=== PATIENT | male | born 1985 | race Caucasian/White ===

== ENCOUNTER 2017-06-22 19:53 | Emergency (ER) | payer OTHER ==
[~2017-06-22] VITALS: Ht 180.3 cm; Wt 72.0 kg
[~2017-06-22 19:53] MED LIST: CARB200T16 PO
[2017-06-22 19:58] VITALS: BP 128/74; PULSE 79; RESP 18; TEMP 99; O2SAT 97
[2017-06-22] MEDS ORDERED: SODIUM CHLOR 0.9% 1000 ML INJ 1,000 ML IV ONE (20:01)
[2017-06-22] MEDS ORDERED: TEGR200T PO (20:05)
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
[2017-06-22] MEDS ORDERED: SODIUM CHLORIDE 0.9% FLUSH 10 ML FLUSH IVF PRN (20:15)
[2017-06-22 20:20] LABS: AUTOMATED NEUTROPHIL # 2.4 TH/MM3 (1.8-7.7); BASOPHIL % 0.6 % (0.0-2.0); EOSINOPHIL # 0.2 TH/MM3 (0-0.4); EOSINOPHIL % 3.4 % (0.0-4.0); HEMATOCRIT 42.1 % (39.0-51.0); HEMO FLAGS DIFF FINAL; LYMPH % 43.9 % (9.0-44.0); LYMPHOCYTE # 2.5 TH/MM3 (1.0-4.8); MEAN CELL VOLUME 98.8 FL (80.0-100.0); MEAN CORPUSCULAR HEMOGLOBIN 33.9 PG (27.0-34.0); MEAN CORPUSCULAR HGB CONC 34.3 % (32.0-36.0); NEUT % 42.1 % (16.0-70.0); PLATELET COUNT 199 TH/MM3 (150-450); RED BLOOD COUNT 4.26 MIL/MM3 (4.50-5.90); RED CELL DISTRIBUTION WIDTH 12.8 % (11.6-17.2); WHITE BLOOD COUNT 5.7 TH/MM3 (4.0-11.0)
[2017-06-22 20:43] LABS: ALKALINE PHOSPHATASE 82 U/L (45-117); ALT (GPT) 35 U/L (12-78); ANION GAP 8 MEQ/L (5-15); AST (GOT) 34 U/L (15-37); BICARBONATE 22.9 MEQ/L (21.0-32.0); BLOOD UREA NITROGEN 17 MG/DL (7-18); CHLORIDE 108 MEQ/L (98-107); GLOMERULAR FILTRATION RATE 67 ML/MIN (>89); POTASSIUM 3.7 MEQ/L (3.5-5.1); SODIUM (NA) 139 MEQ/L (136-145); TOTAL BILIRUBIN ADULT 0.3 MG/DL (0.2-1.0)
[2017-06-22] MEDS ORDERED: ACETAMINOPHEN/HYDROcodone 325 MG/5 MG TAB PO ONE (21:00)
[2017-06-22] MEDS ORDERED: carBAMazepine 200 MG TAB PO ONE (21:00)
== END 2017-06-22 21:26 | disposition home or self-care (01) ==
LOC: NEPE 19:53
DX: R56.9 Unspecified convulsions (principal); E11.9 Type 2 diabetes mellitus without complications; F17.200 Nicotine dependence, unspecified, uncomplicated; Z79.899 Other long term (current) drug therapy
CPT/HCPCS: 80053; 80156; 85025; 99283; J7030

== ENCOUNTER 2017-06-28 12:28 | Emergency (ER) | payer OTHER ==
[~2017-06-28] VITALS: Ht 180.3 cm; Wt 75.0 kg
[~2017-06-28 12:28] MED LIST changes: -CARB200T16 PO; +TEGR200T PO
[2017-06-28 12:50] VITALS: BP 114/68; PULSE 63; RESP 18; TEMP 98.3; O2SAT 98
[2017-06-28] MEDS ORDERED: carBAMazepine 200 MG TAB PO ONE (13:00)
[2017-06-28] MEDS ORDERED: TEGR200T PO (13:00)
--- NOTE | 2017-06-28 13:01 | PD ---
HPI Chief Complaint: Seizure Time Seen by Provider: 12:50 Travel History International Travel<30 days: No Contact w/Intl Traveler<30days: No Traveled to known affect area: No History of Present Illness HPI This is a 31-year-old male who has a history of seizure disorder who presents to the emergency department having had 2 seizures today. The second one was witnessed by his friend who helped him to the ground. He hasn't hit his head, didn't bite his tongue and didn't lose his bowels or bladder. He has no injuries associated with the seizures. He says it lasted for several minutes. The patient reports that he is out of his Tegretol. Usually takes 400 twice a day. He is having trouble getting into a primary care physician and doesn't have a neurologist. He is living in a fpc house. [facility] Past Medical History Diminished Hearing: No Immunizations Current: Yes Seizures: Yes Social History Alcohol Use: Yes (sober for last 3 months, currently in AA) Tobacco Use: Yes (1PP2D) Substance Use: No Allergies-Medications (Allergen,Severity, Reaction): Coded Allergies: No Known Allergies (Verified , 06/22/17) Reported Meds & Prescriptions Reported Meds & Active Scripts Active Reported Tegretol (Carbamazepine) 200 Mg Tab 400 Mg PO BID Review of Systems Except as stated in HPI: all other systems reviewed are Neg Physical Exam Narrative GENERAL:Well appearing, no acute distress SKIN: Focused skin assessment warm and dry. HEAD: Atraumatic. Normocephalic. EYES: Pupils equal and round. No injection or drainage. ENT: Moist mucous membranes NECK: Trachea midline. CARDIOVASCULAR: Regular rate and rhythm. No murmur appreciated. RESPIRATORY: Clear to auscultation. Breath sounds equal bilaterally. GASTROINTESTINAL: Abdomen soft, non-tender, nondistended. MUSCULOSKELETAL: No obvious deformities. NEUROLOGICAL: Awake and alert. No obvious cranial nerve deficits. Moving all extremities. PSYCHIATRIC: Appropriate mood and affect; insight and judgment normal. Data Data Last Documented VS Vital Signs Date Time Temp Pulse Resp B/P Pulse Ox O2 Delivery O2 Flow Rate FiO2 06/28/17 12:50 98.3 63 18 114/68 98 MDM Medical Decision Making Medical Screen Exam Complete: Yes Emergency Medical Condition: Yes Interpretation(s) Afebrile, no tachycardia, normotensive Differential Diagnosis Seizure, seizure disorder, closed head injury Narrative Course This is a 31-year-old male who presents to the emergency department with a seizure in the setting of medication noncompliance. He was just seen here in the emergency department several days ago having had a seizure and had blood work obtained at that time which was normal. He says he hasn't taken any Tegretol since then. I think it's reasonable to load him with Tegretol and provide him with a prescription. I don't think he requires any additional diagnostics or laboratory work. Diagnosis Primary Impression: Seizure Referrals: [facility] Patient Instructions: General Instructions Additional Instructions: If you develop severe worsening headache, persistent vomiting, numbness, weakness, difficulty walking or difficulty talking return to the emergency department immediately. Med/Other Pt SpecificInfo: Prescription(s) given Scripts Carbamazepine (Tegretol)200 Mg [id number] Mg PO BID 30 Days Ref 0 Prov:Lauren Monteiro MD 06/28/17 Disposition: 01 DISCHARGE HOME Condition: Stable Lauren Monteiro MD Jun 28, 2017 13:00
== END 2017-06-28 16:07 | disposition home or self-care (01) ==
LOC: NEPD 12:28
DX: G40.909 Epilepsy, unspecified, not intractable, without status epilepticus (principal); F17.200 Nicotine dependence, unspecified, uncomplicated
CPT/HCPCS: 99283

== ENCOUNTER 2017-07-22 15:01 | Emergency (ER) | payer OTHER ==
[~2017-07-22] VITALS: Ht 167.6 cm; Wt 70.0 kg
[2017-07-22 15:13] VITALS: BP 114/60; PULSE 82; RESP 20; TEMP 98.4; O2SAT 95
[2017-07-22 15:48] VITALS: BP 102/56; PULSE 74; RESP 16; O2SAT 99
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
[2017-07-22] MEDS ORDERED: SODIUM CHLORIDE 0.9% FLUSH 10 ML FLUSH IVF PRN (16:00)
[2017-07-22] MEDS ORDERED: carBAMazepine 200 MG TAB PO ONE (16:00)
[2017-07-22 16:24] LABS: AUTOMATED NEUTROPHIL # 3.9 TH/MM3 (1.8-7.7); BASOPHIL % 0.3 % (0.0-2.0); EOSINOPHIL # 0.1 TH/MM3 (0-0.4); EOSINOPHIL % 2.2 % (0.0-4.0); HEMATOCRIT 45.8 % (39.0-51.0); HEMO FLAGS DIFF FINAL; LYMPH % 25.1 % (9.0-44.0); LYMPHOCYTE # 1.5 TH/MM3 (1.0-4.8); MEAN CELL VOLUME 98.5 FL (80.0-100.0); MEAN CORPUSCULAR HEMOGLOBIN 32.6 PG (27.0-34.0); MEAN CORPUSCULAR HGB CONC 33.1 % (32.0-36.0); MONO % 8.8 % (0.0-8.0); NEUT % 63.6 % (16.0-70.0); PLATELET COUNT 182 TH/MM3 (150-450); RED BLOOD COUNT 4.65 MIL/MM3 (4.50-5.90); RED CELL DISTRIBUTION WIDTH 12.6 % (11.6-17.2); WHITE BLOOD COUNT 6.1 TH/MM3 (4.0-11.0)
[2017-07-22 16:32] VITALS: O2SAT 100
[2017-07-22 16:38] LABS: ALT (GPT) 31 U/L (12-78)
[2017-07-22 16:40] LABS: ALKALINE PHOSPHATASE 94 U/L (45-117); TOTAL BILIRUBIN ADULT 0.8 MG/DL (0.2-1.0)
[2017-07-22 16:43] LABS: ANION GAP 7 MEQ/L (5-15); AST (GOT) 44 U/L (15-37); BICARBONATE 24.6 MEQ/L (21.0-32.0); BLOOD UREA NITROGEN 15 MG/DL (7-18); CHLORIDE 105 MEQ/L (98-107); GLOMERULAR FILTRATION RATE 73 ML/MIN (>89); POTASSIUM 4.4 MEQ/L (3.5-5.1); SODIUM (NA) 137 MEQ/L (136-145)
[2017-07-22] MEDS ORDERED: TEGR200T PO (16:57)
[2017-07-22 17:01] LABS: BLOOD, URINE TRACE (NEG); GLUCOSE,URINE NEG (NEG); HYALINE CAST, URINE 1 /lpf (RARE); KETONE, URINE TRACE mg/dL (NEG); MUCUS URINE MOD /lpf (OCC); NITRITE,URINE NEG (NEG); PH, URINE 5.5 (5.0-8.5); SQUAMOUS EPITHELIAL CELL URINE <1 /hpf (0-5); URINE COLOR YELLOW (YELLW/STRAW)
[2017-07-22 17:56] VITALS: BP 138/75; PULSE 77; RESP 16; O2SAT 100
== END 2017-07-22 17:57 | disposition home or self-care (01) ==
LOC: NEPC 15:01
DX: G40.901 Epilepsy, unspecified, not intractable, with status epilepticus (principal); Z72.0 Tobacco use
CPT/HCPCS: 80053; 80156; 80307; 81001; 85025; 99283

== ENCOUNTER 2017-08-14 18:01 | Emergency (ER) | payer OTHER ==
[2017-08-14 18:09] VITALS: BP 135/83; PULSE 79; RESP 18; TEMP 98.6; O2SAT 99
[2017-08-14] MEDS ORDERED: SODIUM CHLOR 0.9% 1000 ML INJ 1,000 ML IV ONE (18:21)
--- NOTE | 2017-08-14 18:27 | PD ---
HPI Chief Complaint: Seizure Time Seen by Provider: 18:21 Travel History International Travel<30 days: No Contact w/Intl Traveler<30days: No Traveled to known affect area: No History of Present Illness HPI 31-year-old male presents to the emergency department for evaluation for seizure. The patient has history of seizures since he was 7 years old. He is currently on Tegretol. He states he has been taking as prescribed. Last seizure was approximately 3 weeks ago. He is not currently established with a neurologist. He states he went to take a nap and woke up with blood on the floor and a laceration on his head. He states that he believe he got back up to the couch in his postictal state. He states that he feels like he typically does after having a seizure. Patient states that he fell onto tile floor. He has a laceration to the forehead. He complains of headache, neck pain. The patient denies any chest pain or shortness of breath. No abdominal pain. No nausea, vomiting, diarrhea. Patient denies any lacerations to the tongue or incontinence. PFSH Past Medical History Diminished Hearing: No Immunizations Current: Yes Seizures: Yes Tetanus Vaccination: > 5 Years Social History Alcohol Use: No Tobacco Use: Yes Substance Use: No Allergies-Medications (Allergen,Severity, Reaction): Coded Allergies: No Known Allergies (Verified , 06/28/17) Reported Meds & Prescriptions Reported Meds & Active Scripts Active Tegretol (Carbamazepine) 200 Mg Tab 400 Mg PO BID 30 Days Review of Systems Except as stated in HPI: all other systems reviewed are Neg Physical Exam Narrative GENERAL: Well-nourished, well-developed male patient, afebrile. SKIN: Focused skin assessment warm/dry. Patient has a 2 cm linear laceration to the right forehead. HEAD: Normocephalic. ENT: Mucosa pink and moist. No erythema or exudates. No uvular edema. No uvular , palatal, or tonsillar deviation. Airway patent. Nasal turbinates appear normal without nasal blood, purulent drainage or septal hematoma. Bilateral tympanic membranes are clear without erythema or perforation. EYES: No scleral icterus. No injection or drainage. PERRLA. NECK: Supple, trachea midline. No JVD or lymphadenopathy. CARDIOVASCULAR: Regular rate and rhythm without murmurs, gallops, or rubs. RESPIRATORY: Breath sounds equal bilaterally. No accessory muscle use. Lungs sounds are clear to auscultation. GASTROINTESTINAL: Abdomen soft, non-tender, nondistended. MUSCULOSKELETAL: No cyanosis, or edema. BACK: No obvious deformity. No CVA tenderness. Patient has tenderness to palpation over midline cervical spine. Data Data Last Documented VS Vital Signs Date Time Temp Pulse Resp B/P (MAP) Pulse Ox O2 Delivery O2 Flow Rate FiO2 08/14/17 19:12 70 16 120/81 (94) 99 Room Air 08/14/17 18:41 2.00 08/14/17 18:09 98.6 Orders Orders Complete Blood Count With Diff (08/14/17 18:21) Electrocardiogram (08/14/17 ) Ct Brain W/O Iv Contrast(Rout) (08/14/17 ) Blood Glucose (08/14/17 18:21) Ecg Monitoring (08/14/17 18:21) Iv Access Insert/Monitor (08/14/17 18:21) Oximetry (08/14/17 18:21) Comprehensive Metabolic Panel (08/14/17 18:21) Sodium Chlor 0.9% 1000 Ml Inj (Ns 1000 M (08/14/17 18:21) Sodium Chloride 0.9% Flush (Ns Flush) (08/14/17 18:30) Magnesium (Mg) (08/14/17 18:21) Ct Cerv Spine W/O Contrast (08/14/17 ) Labs Laboratory Tests Test 08/14/17 18:34 White Blood Count 5.5 TH/MM3 Red Blood Count 4.46 MIL/MM3 Hemoglobin 15.0 GM/DL Hematocrit 43.7 % Mean Corpuscular Volume 98.2 FL Mean Corpuscular Hemoglobin 33.6 PG Mean Corpuscular Hemoglobin Concent 34.2 % Red Cell Distribution Width 12.7 % Platelet Count 170 TH/MM3 Mean Platelet Volume 8.9 FL Neutrophils (%) (Auto) 56.0 % Lymphocytes (%) (Auto) 31.5 % Monocytes (%) (Auto) 7.6 % Eosinophils (%) (Auto) 4.3 % Basophils (%) (Auto) 0.6 % Neutrophils # (Auto) 3.1 TH/MM3 Lymphocytes # (Auto) 1.7 TH/MM3 Monocytes # (Auto) 0.4 TH/MM3 Eosinophils # (Auto) 0.2 TH/MM3 Basophils # (Auto) 0.0 TH/MM3 CBC Comment DIFF FINAL Differential Comment Blood Urea Nitrogen 11 MG/DL Creatinine 1.03 MG/DL Random Glucose 101 MG/DL Total Protein 6.4 GM/DL Albumin 3.6 GM/DL Calcium Level 8.6 MG/DL Magnesium Level 2.0 MG/DL Alkaline Phosphatase 102 U/L Aspartate Amino Transf (AST/SGOT) 14 U/L Alanine Aminotransferase (ALT/SGPT) 20 U/L Total Bilirubin 0.4 MG/DL Sodium Level 140 MEQ/L Potassium Level 3.7 MEQ/L Chloride Level 107 MEQ/L Carbon Dioxide Level 27.4 MEQ/L Anion Gap 6 MEQ/L Estimat Glomerular Filtration Rate 83 ML/MIN MDM Medical Decision Making Medical Screen Exam Complete: Yes Emergency Medical Condition: Yes Medical Record Reviewed: Yes Interpretation(s) Last Impressions Head CT 08/14/17 0000 Signed Impressions: Service Date/Time: Monday, August 14, 2017 18:34 - CONCLUSION: No bleed or other acute intracranial abnormality. Maldonado Gallardo MD Cervical Spine CT 08/14/17 0000 Signed Impressions: Service Date/Time: Monday, August 14, 2017 18:37 - CONCLUSION: 1. No fracture or subluxation of the cervical spine. 2. Fairly advanced multilevel degenerative changes for a patient this age. There is associated multilevel spinal stenosis, especially C2/C3. Maldonado Gallardo MD Differential Diagnosis Breakthrough seizure versus electrolyte abnormality versus dehydration versus facial laceration Narrative Course 31-year-old male presents to the emergency department for evaluation after he had a seizure with a history of seizures. He does have laceration to the forehead. He complains of neck pain and headache. EKG shows sinus rhythm heart rate 73, no acute ST changes. CBC, CMP, magnesium are ordered and pending. CT of the brain and CT of the cervical spine are ordered and pending. Patient is given 1 L normal saline IV bolus. CBC shows no acute abnormality. CMP shows no acute abnormality. Magnesium is 2.0. CT of the brain shows no acute intracranial abnormality. CT of the cervical spine shows no fracture or subluxation of the cervical spine; fairly advanced multilevel degenerative changes for a patient this age. There is associated multilevel spinal stenosis, especially C2/C3. Lacerations are repaired with Dermabond. He is instructed on proper wound care. The patient states that he would like to go home. He states he is almost out of his Tegretol prescription. I will give him a refill of his prescription. I'll also give him the name and number were neurologist on-call. He is to return here for any acute worsening of symptoms. He verbalizes agreement and understanding. The patient was discharged in stable condition with instructions, including return instructions and follow up instructions. Procedures Procedure Narrative LACERATION LOCATION: Left forehead LENGTH: 0.5 cm NUMBER OF STITCHES/FRANCHESCA: Dermabond REPAIR: The area of the laceration was prepped with Betadine and sterilely draped. The wound was copiously irrigated and explored without evidence of foreign body, tendon injury or neurovascular injury. The wound was closed using Dermabond. This was a single layer repair. A sterile dressing was applied. The patient was advised to keep the dressing clean and dry. Patient tolerated the procedure well. LACERATION LOCATION: Left forehead LENGTH: 2 cm NUMBER OF STITCHES/FRANCHESCA: Dermabond REPAIR: The area of the laceration was prepped with Betadine and sterilely draped. The wound was copiously irrigated and explored without evidence of foreign body, tendon injury or neurovascular injury. The wound was closed using Dermabond. This was a single er repair. A sterile dressing was applied. The patient was advised to keep the dressing clean and dry. Patient tolerated the procedure well. Diagnosis Primary Impression: Breakthrough seizure Referrals: Kolby Cruz MD call for appointment Patient Instructions: Facial Laceration (ED), General Instructions, Generalized Tonic Clonic Seizures (ED) Additional Instructions: Do not apply creams or lotions the skin glue. Do not pick at skin glue. It will come off on its own. Keep skin glue dry. Follow up with neurologist. Dr. Cruz is her neurologist on-call today. Please call for an appointment. Return to the emergency department for any acute worsening of symptoms. Med/Other Pt SpecificInfo: Prescription(s) given Scripts Carbamazepine (Tegretol) 200 Mg Tab 400 MG PO BID for 30 Days, #60 TAB 0 Refills Prov: Yasmin Whitlock 08/14/17 Disposition: 01 DISCHARGE HOME Condition: Stable Yasmin Whitlock Aug 14, 2017 18:27
[2017-08-14] MEDS ORDERED: SODIUM CHLORIDE 0.9% FLUSH 10 ML FLUSH IVF PRN (18:30)
[2017-08-14 18:41] VITALS: O2SAT 97
--- NOTE | 2017-08-14 18:52 | RADRPT ---
EXAM DATE/TIME: 08/14/2017 18:34 [facility] COMPARISON: No previous studies available for comparison. INDICATIONS : Trauma, seizure today. Laceration on forehead. RADIATION DOSE: 56.35 CTDIvol (mGy) MEDICAL HISTORY : Seizures. SURGICAL HISTORY : None. ENCOUNTER: Initial ACUITY: 1 day PAIN SCALE: 2/10 LOCATION: cranial TECHNIQUE: Multiple contiguous axial images were obtained of the head. Using automated exposure control and adj ustment of the mA and/or kV according to patient size, radiation dose was kept as low as reasonably a chievable to obtain optimal diagnostic quality images. DICOM format image data is available electro nically for review and comparison. FINDINGS: CEREBRUM: The ventricles are normal for age. No evidence of midline shift, mass lesion, hemorrhage or acute in farction. No extra-axial fluid collections are seen. POSTERIOR FOSSA: The cerebellum and brainstem are intact. The 4th ventricle is midline. The cerebellopontine angle i s unremarkable. EXTRACRANIAL: The visualized portion of the orbits is intact. SKULL: The calvaria is intact. No evidence of skull fracture. CONCLUSION: No bleed or other acute intracranial abnormality. Maldonado Gallardo MD on August 14, 2017 at 18:50 Board Certified Radiologist. This report was verified electronically.
[2017-08-14 18:54] LABS: AUTOMATED NEUTROPHIL # 3.1 TH/MM3 (1.8-7.7); BASOPHIL % 0.6 % (0.0-2.0); EOSINOPHIL # 0.2 TH/MM3 (0-0.4); EOSINOPHIL % 4.3 % (0.0-4.0); HEMATOCRIT 43.7 % (39.0-51.0); HEMO FLAGS DIFF FINAL; LYMPH % 31.5 % (9.0-44.0); LYMPHOCYTE # 1.7 TH/MM3 (1.0-4.8); MEAN CELL VOLUME 98.2 FL (80.0-100.0); MEAN CORPUSCULAR HEMOGLOBIN 33.6 PG (27.0-34.0); MEAN CORPUSCULAR HGB CONC 34.2 % (32.0-36.0); MONO % 7.6 % (0.0-8.0); PLATELET COUNT 170 TH/MM3 (150-450); RED BLOOD COUNT 4.46 MIL/MM3 (4.50-5.90); RED CELL DISTRIBUTION WIDTH 12.7 % (11.6-17.2); WHITE BLOOD COUNT 5.5 TH/MM3 (4.0-11.0)
--- NOTE | 2017-08-14 18:56 | RADRPT ---
EXAM DATE/TIME: 08/14/2017 18:37 [facility] COMPARISON: No previous studies available for comparison. INDICATIONS : Trauma, seizure today. Laceration on forehead. RADIATION DOSE: 34.77 CTDIvol (mGy) MEDICAL HISTORY : Seizures. SURGICAL HISTORY : None. ENCOUNTER: Initial ACUITY: 1 day PAIN SCALE: 0/10 LOCATION: neck TECHNIQUE: Volumetric scanning of the cervical spine was performed. Multiplanar reconstructions in the sagittal, coronal and oblique axial planes were performed. Using automated exposure control and adjustment o f the mA and/or kV according to patient size, radiation dose was kept as low as reasonably achievable to obtain optimal diagnostic quality images. DICOM format image data is available electronically f or review and comparison. FINDINGS: No subluxations are demonstrated of the cervical spine. No cortical break or trabecular disruption. V ertebral body heights are within normal limits. Mild disc space narrowing with essentially circumferential osseous ridging seen at each level, C3/C4- C6/C7. 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 There is generally mild spinal stenos is at other levels. There is mild bilateral uncovertebral and facet osteoarthritis at essentially all levels. No paravertebral soft tissue swelling demonstrated. CONCLUSION: 1. No fracture or subluxation of the cervical spine. 2. Fairly advanced multilevel degenerative changes for a patient this age. There is associated multil evel spinal stenosis, especially C2/C3. Maldonado Gallardo MD on August 14, 2017 at 18:52 Board Certified Radiologist. This report was verified electronically.
[2017-08-14 19:03] LABS: ALT (GPT) 20 U/L (12-78); ANION GAP 6 MEQ/L (5-15); AST (GOT) 14 U/L (15-37); BICARBONATE 27.4 MEQ/L (21.0-32.0); BLOOD UREA NITROGEN 11 MG/DL (7-18); CHLORIDE 107 MEQ/L (98-107); GLOMERULAR FILTRATION RATE 83 ML/MIN (>89); POTASSIUM 3.7 MEQ/L (3.5-5.1); SODIUM (NA) 140 MEQ/L (136-145)
[2017-08-14 19:06] LABS: ALKALINE PHOSPHATASE 102 U/L (45-117); TOTAL BILIRUBIN ADULT 0.4 MG/DL (0.2-1.0)
[2017-08-14 19:12] VITALS: BP 120/81; PULSE 70; RESP 16; O2SAT 99
[2017-08-14] MEDS ORDERED: TEGR200T PO (19:46)
--- NOTE | 2017-08-14 21:45 | EKG ---
Date Performed: 08/14/2017 Time Performed: 18:09:01 PTAGE: 31 years EKG: Sinus rhythm NORMAL ECG NO PREVIOUS TRACING DOCTOR: Robert Shetty Interpretating Date/Time 08/14/2017 21:43:42
== END 2017-08-14 20:07 | disposition home or self-care (01) ==
LOC: NEPC 18:01
DX: G40.89 Other seizures (principal); S01.81XA Laceration without foreign body of other part of head, initial encounter; R51 Headache; M54.2 Cervicalgia; Z72.0 Tobacco use; Z86.69 Personal history of other diseases of the nervous system and sense organs; W08.XXXA Fall from other furniture, initial encounter
CPT/HCPCS: 12011; 70450; 72125; 80053; 83735; 85025; 93005; 96360; 99285; J7030

== ENCOUNTER 2017-08-20 14:07 | Inpatient (IN) | payer OTHER, MEDICARE ==
[~2017-08-20] VITALS: Ht 182.9 cm; Wt 69.4 kg
[2017-08-20 14:08] VITALS: BP 110/72; PULSE 68; RESP 20; TEMP 98; O2SAT 97
--- NOTE | 2017-08-20 14:27 | PD ---
Physical Exam Date Seen by Provider: Aug 20, 2017 Time Seen by Provider: 14:23 Narrative 31-year-old male presents to emergency Department with history of seizure disorder on Tegretol, with recent increased depression and suicidal ideation. Patient has history of suicidal attempts a couple of years ago. Patient also states history of hypoglycemia. Patient states he's having more seizures, last one documented August 14. Patient denies any other medical issues. Vital signs reviewed. Patient is awaiting mental health placement. Data Data Last Documented VS Vital Signs Date Time Temp Pulse Resp B/P (MAP) Pulse Ox O2 Delivery O2 Flow Rate FiO2 08/20/17 14:08 98.0 68 20 110/72 (85) 97 Room Air [facility] Medical Record Reviewed: Yes Supervised Visit with NILA: Yes Condition: Stable Keenan Boyd Aug 20, 2017 14:27
[2017-08-20 15:13] LABS: AUTOMATED NEUTROPHIL # 2.9 TH/MM3 (1.8-7.7); BASOPHIL % 0.7 % (0.0-2.0); EOSINOPHIL # 0.1 TH/MM3 (0-0.4); EOSINOPHIL % 2.1 % (0.0-4.0); HEMO FLAGS DIFF FINAL; LYMPH % 38.5 % (9.0-44.0); LYMPHOCYTE # 2.3 TH/MM3 (1.0-4.8); MEAN CELL VOLUME 98.5 FL (80.0-100.0); MEAN CORPUSCULAR HEMOGLOBIN 33.4 PG (27.0-34.0); MONO % 11.8 % (0.0-8.0); NEUT % 46.9 % (16.0-70.0); PLATELET COUNT 188 TH/MM3 (150-450); RED BLOOD COUNT 4.87 MIL/MM3 (4.50-5.90); RED CELL DISTRIBUTION WIDTH 12.8 % (11.6-17.2); WHITE BLOOD COUNT 6.1 TH/MM3 (4.0-11.0)
[2017-08-20 15:34] LABS: ALT (GPT) 25 U/L (12-78); ANION GAP 5 MEQ/L (5-15); AST (GOT) 27 U/L (15-37); BICARBONATE 29.6 MEQ/L (21.0-32.0); BLOOD UREA NITROGEN 16 MG/DL (7-18); CHLORIDE 104 MEQ/L (98-107); GLOMERULAR FILTRATION RATE 64 ML/MIN (>89); POTASSIUM 3.7 MEQ/L (3.5-5.1); SODIUM (NA) 139 MEQ/L (136-145)
[2017-08-20 15:37] LABS: ALKALINE PHOSPHATASE 117 U/L (45-117)
--- NOTE | 2017-08-20 17:03 | PD ---
HPI . Suicidal ideation Chief Complaint: Psychiatric Symptoms Time Seen by Provider: 16:54 Travel History International Travel<30 days: No Contact w/Intl Traveler<30days: No Traveled to known affect area: No History of Present Illness HPI This patient presents with a chief complaint of suicidal ideation. He was brought in by the police but is voluntary. He reports suicidal ideation. Last several years. He states that his symptoms have been made acutely worse because he has "thrown out of his house" and has lost his job because of seizures. He does not have a specific plan. [facility] Past Medical History Diminished Hearing: No Immunizations Current: Yes Seizures: Yes Past Surgical History Surgical History: No Previous Surgery Social History Alcohol Use: No Tobacco Use: Yes Substance Use: No Allergies-Medications (Allergen,Severity, Reaction): Coded Allergies: No Known Allergies (Verified , 08/20/17) Reported Meds & Prescriptions Reported Meds & Active Scripts Active Tegretol (Carbamazepine) 200 Mg Tab 400 Mg PO BID 30 Days Review of Systems Except as stated in HPI: all other systems reviewed are Neg Neurologic: Positive: Seizures Psychiatric: Positive: Depression, Suicidal Ideations Physical Exam Narrative GENERAL: Patient is lying on the stretcher watching TV in no distress. SKIN: warm/dry. HEAD: Normocephalic. Atraumatic. EYES: Pupils equal and round. No scleral icterus. No injection or drainage. ENT: No nasal bleeding or discharge. Mucous membranes pink and moist. NECK: Trachea midline. Full range of motion without pain.. CARDIOVASCULAR: Regular rate and rhythm. RESPIRATORY: No accessory muscle use. Clear to auscultation. Breath sounds equal bilaterally. MUSCULOSKELETAL: No obvious deformities. NEUROLOGICAL: Awake and alert. No obvious cranial nerve deficits. Motor grossly within normal limits. Normal speech. PSYCHIATRIC: Reported suicidal ideation. Data Data Last Documented VS Vital Signs Date Time Temp Pulse Resp B/P (MAP) Pulse Ox O2 Delivery O2 Flow Rate FiO2 08/20/17 14:08 98.0 68 20 110/72 (85) 97 Room Air Orders Orders Complete Blood Count With Diff (08/20/17 14:27) Comprehensive Metabolic Panel (08/20/17 14:27) Carbamazepine (Tegretol) (08/20/17 14:27) Psych Screen (08/20/17 14:27) Drug Screen, Random Urine (08/20/17 14:27) Labs Laboratory Tests Test 08/20/17 14:45 White Blood Count 6.1 TH/MM3 Red Blood Count 4.87 MIL/MM3 Hemoglobin 16.3 GM/DL Hematocrit 48.0 % Mean Corpuscular Volume 98.5 FL Mean Corpuscular Hemoglobin 33.4 PG Mean Corpuscular Hemoglobin Concent 34.0 % Red Cell Distribution Width 12.8 % Platelet Count 188 TH/MM3 Mean Platelet Volume 8.5 FL Neutrophils (%) (Auto) 46.9 % Lymphocytes (%) (Auto) 38.5 % Monocytes (%) (Auto) 11.8 % Eosinophils (%) (Auto) 2.1 % Basophils (%) (Auto) 0.7 % Neutrophils # (Auto) 2.9 TH/MM3 Lymphocytes # (Auto) 2.3 TH/MM3 Monocytes # (Auto) 0.7 TH/MM3 Eosinophils # (Auto) 0.1 TH/MM3 Basophils # (Auto) 0.0 TH/MM3 CBC Comment DIFF FINAL Differential Comment Blood Urea Nitrogen 16 MG/DL Creatinine 1.30 MG/DL Random Glucose 82 MG/DL Total Protein 8.2 GM/DL Albumin 4.4 GM/DL Calcium Level 9.0 MG/DL Alkaline Phosphatase 117 U/L Aspartate Amino Transf (AST/SGOT) 27 U/L Alanine Aminotransferase (ALT/SGPT) 25 U/L Total Bilirubin 1.0 MG/DL Sodium Level 139 MEQ/L Potassium Level 3.7 MEQ/L Chloride Level 104 MEQ/L Carbon Dioxide Level 29.6 MEQ/L Anion Gap 5 MEQ/L Estimat Glomerular Filtration Rate 64 ML/MIN Carbamazepine (Tegretol) Level 1.5 MCG/ML MDM Medical Decision Making Medical Screen Exam Complete: Yes Emergency Medical Condition: Yes Medical Record Reviewed: Yes (this patient has been seen here several times in the recent past for seizures. On review of his previous labs, his Tegretol level is often subtherapeutic. He has had recent labs which were unremarkable.) Differential Diagnosis Differential diagnosis includes but is not limited to depression with suicidal gesture, suicide attempt, suicidal ideation, attention seeking behavior. Narrative Course This patient presents stating that he is suicidal. He is medically clear. He has had recent labs. I have ordered a Tegretol level. However, he is medically clear for psychiatric evaluation. Diagnosis Primary Impression: Suicidal ideation Condition: Stable Samantha Chinchilla MD Aug 20, 2017 17:03
[2017-08-20 21:51] VITALS: BP 110/52; PULSE 74; RESP 20; O2SAT 100
[2017-08-20] MEDS ORDERED: LORazepam 2 MG/ML VIAL IV PUSH ONE (22:00)
[2017-08-20] MEDS: carBAMazepine 200 MG TAB PO SCH (22:26)
[2017-08-21] VITALS (7 sets, daily range): BP systolic 88–120; BP diastolic 56–69; PULSE 52–82; RESP 16–22; TEMP 97.7; O2SAT 97–99
--- NOTE | 2017-08-21 05:33 | PD ---
Data Data Last Documented VS Vital Signs Date Time Temp Pulse Resp B/P (MAP) Pulse Ox O2 Delivery O2 Flow Rate FiO2 08/21/17 01:15 78 16 91/65 (74) 99 Room Air 08/20/17 14:08 98.0 Orders Orders Complete Blood Count With Diff (08/20/17 14:27) Comprehensive Metabolic Panel (08/20/17 14:27) Carbamazepine (Tegretol) (08/20/17 14:27) Psych Screen (08/20/17 14:27) Drug Screen, Random Urine (08/20/17 14:27) Carbamazepine (Tegretol) (08/20/17 21:00) Lorazepam Inj (Ativan Inj) (08/20/17 22:00) Labs Laboratory Tests Test 08/20/17 14:45 White Blood Count 6.1 TH/MM3 Red Blood Count 4.87 MIL/MM3 Hemoglobin 16.3 GM/DL Hematocrit 48.0 % Mean Corpuscular Volume 98.5 FL Mean Corpuscular Hemoglobin 33.4 PG Mean Corpuscular Hemoglobin Concent 34.0 % Red Cell Distribution Width 12.8 % Platelet Count 188 TH/MM3 Mean Platelet Volume 8.5 FL Neutrophils (%) (Auto) 46.9 % Lymphocytes (%) (Auto) 38.5 % Monocytes (%) (Auto) 11.8 % Eosinophils (%) (Auto) 2.1 % Basophils (%) (Auto) 0.7 % Neutrophils # (Auto) 2.9 TH/MM3 Lymphocytes # (Auto) 2.3 TH/MM3 Monocytes # (Auto) 0.7 TH/MM3 Eosinophils # (Auto) 0.1 TH/MM3 Basophils # (Auto) 0.0 TH/MM3 CBC Comment DIFF FINAL Differential Comment Blood Urea Nitrogen 16 MG/DL Creatinine 1.30 MG/DL Random Glucose 82 MG/DL Total Protein 8.2 GM/DL Albumin 4.4 GM/DL Calcium Level 9.0 MG/DL Alkaline Phosphatase 117 U/L Aspartate Amino Transf (AST/SGOT) 27 U/L Alanine Aminotransferase (ALT/SGPT) 25 U/L Total Bilirubin 1.0 MG/DL Sodium Level 139 MEQ/L Potassium Level 3.7 MEQ/L Chloride Level 104 MEQ/L Carbon Dioxide Level 29.6 MEQ/L Anion Gap 5 MEQ/L Estimat Glomerular Filtration Rate 64 ML/MIN Carbamazepine (Tegretol) Level 1.5 MCG/ML MDM Supervised Visit with NILA: No Narrative Course Patient had a short witnessed seizure and cycling pot. He was brought to the [facility] pod around 10 PM or so. Seizure activity was brief. He had some postictal activity afterwards. She was small dose of Ativan. He has his home seizure medications ordered which he apparently had not been taking. He remains medically clear for psychiatry. Diagnosis Primary Impression: Suicidal ideation Condition: Stable Sohail Balbuena MD Aug 21, 2017 05:33
[2017-08-21] MEDS: carBAMazepine 200 MG TAB PO SCH ×2 (11:13→21:00)
--- NOTE | 2017-08-21 14:37 | PD ---
History of Present Illness Chief Complaint: Psychiatric Symptoms Time Seen by Provider: 13:00 Travel History International Travel<30 Days: No Contact w/Intl Traveler<30days: No Known affected area: No Legal Status Legal Status: Voluntary History of Present Illness: 31-year-old male presents voluntarily with reports of depression and suicidal ideation. Patient has a history of a seizure disorder and reports for this reason he has lost his job. He describes suicidal ideation and is unable or unwilling to contract for safety. Although his mother lives in [place] , the patient cannot let go there because his stepfather will not allow it. Symptoms of depressed mood, anhedonia, social withdrawal, suicidal ideation with plan, tearfulness, hopelessness and helplessness, sleep disturbance and appetite disturbance and anxiety. PFSH Past Medical History Diminished Hearing: No Immunizations Current: Yes Seizures: Yes Past Surgical History Surgical History: No Previous Surgery Psychiatric History Psychiatric History Hx Psychiatric Treatment: Denied History of Inpatient Treatment: No Guns or firearms in home: No Social History Hx Alcohol Use: No Hx Tobacco Use: Yes Hx Substance Use: No Hx of Substance Use Treatment: No Allergies-Medications (Allergen,Severity, Reaction): Coded Allergies: No Known Allergies (Verified , 08/21/17) Reported Meds & Prescriptions Reported Meds & Active Scripts Active Tegretol (Carbamazepine) 200 Mg Tab 400 Mg PO BID 30 Days Review of Systems Except as stated in HPI: all other systems reviewed are Neg Exam Alert: Yes [place]: Person, Place, Date, Situation Mood: Depressed Affect: Appropriate Speech: Clear, Logical Eye Contact: Normal Memory Intact: Immediate, Recent, Remote Suicidal: Plan, Ideation Insight/Judgement Impaired MDM Medical Decision Making Medical Record Reviewed: Yes Assessment/Plan Patient interviewed at bedside. Medical record reviewed. Case discussed with nurse. Patient felt to be at high risk for suicidal behavior. Plan is to admit him for further evaluation and treatment. Orders Orders Carbamazepine (Tegretol) (08/20/17 21:00) Lorazepam Inj (Ativan Inj) (08/20/17 22:00) Diet Regular Basic (08/21/17 Breakfast) Results Vital Signs Date Time Temp Pulse Resp B/P (MAP) Pulse Ox O2 Delivery O2 Flow Rate FiO2 08/21/17 07:53 70 22 107/64 (78) 99 Room Air 08/21/17 05:15 82 16 88/56 (67) 99 Room Air 08/21/17 01:15 78 16 91/65 (74) 99 Room Air 08/20/17 21:51 74 20 110/52 (71) 100 Room Air Laboratory Tests Test 08/20/17 14:45 08/21/17 13:30 White Blood Count 6.1 Red Blood Count 4.87 Hemoglobin 16.3 Hematocrit 48.0 Mean Corpuscular Volume 98.5 Mean Corpuscular Hemoglobin 33.4 Mean Corpuscular Hemoglobin Concent 34.0 Red Cell Distribution Width 12.8 Platelet Count 188 Mean Platelet Volume 8.5 Neutrophils (%) (Auto) 46.9 Lymphocytes (%) (Auto) 38.5 Monocytes (%) (Auto) 11.8 Eosinophils (%) (Auto) 2.1 Basophils (%) (Auto) 0.7 Neutrophils # (Auto) 2.9 Lymphocytes # (Auto) 2.3 Monocytes # (Auto) 0.7 Eosinophils # (Auto) 0.1 Basophils # (Auto) 0.0 CBC Comment DIFF FINAL Differential Comment Blood Urea Nitrogen 16 Creatinine 1.30 Random Glucose 82 Total Protein 8.2 Albumin 4.4 Calcium Level 9.0 Alkaline Phosphatase 117 Aspartate Amino Transf (AST/SGOT) 27 Alanine Aminotransferase (ALT/SGPT) 25 Total Bilirubin 1.0 Sodium Level 139 Potassium Level 3.7 Chloride Level 104 Carbon Dioxide Level 29.6 Anion Gap 5 Estimat Glomerular Filtration Rate 64 Carbamazepine (Tegretol) Level 1.5 Urine Opiates Screen NEG Urine Barbiturates Screen NEG Urine Amphetamines Screen NEG Urine Benzodiazepines Screen NEG Urine Cocaine Screen POS Urine Cannabinoids Screen POS Diagnosis Primary Impression: Adjustment disorder with depressed mood Prescriptions Mirtazapine (Mirtazapine) 15 Mg Tab 15 MG PO HS for Mental Health for 15 Days, TAB 1 Refill Prov: Kolby Leong MD 08/25/17 Levetiracetam (Keppra) 500 Mg Tab 500 MG PO Q12HR for Seizure for 15 Days, TAB 1 Refill Prov: Kolby Leong MD 08/25/17 Condition: Stable Angel Riddle MD Aug 21, 2017 14:37
[2017-08-22 06:04] VITALS: BP 107/65; PULSE 54; RESP 18
[2017-08-22] MEDS: carBAMazepine 200 MG TAB PO SCH ×2 (09:45→21:00)
[2017-08-22 11:15] VITALS: BP 108/56; PULSE 60; RESP 18; O2SAT 100
[2017-08-22 17:48] VITALS: BP 108/56; PULSE 60; RESP 18; O2SAT 100
[2017-08-22 18:15] VITALS: BP 110/65; PULSE 62; TEMP 98.4
[2017-08-22] MEDS ORDERED: MAGNESIUM HYDROXIDE SUSP 30 ML CUP PO PRN (18:30)
[2017-08-22] MEDS ORDERED: ACETAMINOPHEN 325 MG TAB PO PRN (18:30)
[2017-08-22] MEDS ORDERED: LORazepam 2 MG/ML VIAL IM PRN (18:30)
[2017-08-22] MEDS ORDERED: ALUMINUM/MAGNESIUM/SIMETH 30 ML CUP PO PRN (18:30)
[2017-08-22] MEDS ORDERED: LORazepam 1 MG TAB PO PRN (18:30)
[2017-08-22] MEDS: REMOVE OLD NICOTINE PATCH T-DERMAL SCH (21:00)
[2017-08-23 06:16] VITALS: BP 119/74; PULSE 67; TEMP 97.1; O2SAT 99
[2017-08-23 08:47] LABS: ANION GAP 6 MEQ/L (5-15); BICARBONATE 31.4 MEQ/L (21.0-32.0); BLOOD UREA NITROGEN 17 MG/DL (7-18); CHLORIDE 106 MEQ/L (98-107); GLOMERULAR FILTRATION RATE 67 ML/MIN (>89); POTASSIUM 3.8 MEQ/L (3.5-5.1); SODIUM (NA) 143 MEQ/L (136-145)
[2017-08-23 08:50] LABS: HDL CHOLESTEROL 40.3 MG/DL (40.0-60.0); LDL CHOLESTEROL 96 MG/DL (0-99)
[2017-08-23] MEDS: NICOTINE 21 MG/24 HR PATCH T-DERMAL SCH (09:58)
[2017-08-23] MEDS: carBAMazepine 200 MG TAB PO SCH (11:00)
[2017-08-23 11:19] LABS: HEMOGLOBIN A1b 0.8 %; HEMOGLOBIN Ao 87.1 %; HEMOGLOBIN F 0.8 %; HEMOGLOBIN LA1C 1.8 %; HEMOGLOBIN P3 3.3 %
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
--- NOTE | 2017-08-23 12:57 | EKG ---
Date Performed: 08/23/2017 Time Performed: 10:21:39 PTAGE: 31 years EKG: Normal Sinus rhythm Normal ECG PREVIOUS TRACING : 08/14/2017 18.09 Compared to prior tracing no significant change DOCTOR: Michael Joyner Interpretating Date/Time 08/23/2017 12:56:22
--- NOTE | 2017-08-23 13:39 | PD.CONS ---
HPI Service [facility] Hospitalists Consult Requested By Psychiatric services Reason for Consult Medical management, seizure management Primary Care Physician No Primary Care Physician Diagnoses: History of Present Illness Written by Madina Perez PA-C acting as scribe for Dr. Bradshaw on 08/23/17 at 13:29. This note was transcribed by scribe Madina Perez PA-C. I, Dr. Raj Bradshaw personally performed the history, physical exam, and medical decision making; and confirmed the accuracy of the information in the transcribed note. Authenticated by Dr. Raj Bradshaw on 08/23/17 at 20:16. This is a 31-year-old male with past medical history significant for seizure disorder starting at the age of 7, depression and history of hypoglycemia per patient report who was brought in to [facility] ED by the police voluntarily for suicidal ideation and has since been admitted to the psychiatric unit. Hospitalist services have been consulted for medical management specifically for seizure management. Patient states he has been compliant with his Tegretol medication taking it as prescribed although his levels were low at 1.5 at admission which would imply noncompliance. Patient states he has recurrent seizure activity. Patient states he recently lost his job due to seizures. Per ED note at time of admission, patient had a witnessed seizure. He does not follow up with neurologist as an outpatient. Patient endorses a history of low blood sugar that he states triggers his seizures. He admits that he sometimes skips meals. He does not know how low his blood sugars may go. Patient denies any other complaints at this time. Review of Systems Except as stated in HPI: all other systems reviewed are Neg Past Family Social History Allergies: Coded Allergies: No Known Allergies (Verified , 08/21/17) Past Medical History Long-standing seizure disorder since age 7 Depression Suicidal ideation Hypoglycemia per patient report Past Surgical History Patient denies any previous surgical procedures Reported Medications Tegretol (Carbamazepine) 200 Mg Tab 400 Mg PO BID Active Ordered Medications Current Medications Medications (Trade) Dose Ordered Sig/Shane Route Start Time Stop Time Status Last Admin (TEGretol) 400 mg Q12HR PO 08/20/17 21:00 08/23/17 11:00 (Ativan) 1 mg Q6H PRN PO 08/22/17 18:30 08/22/17 22:20 (Ativan Inj) 1 mg Q6H PRN IM 08/22/17 18:30 (Tylenol) 650 mg Q4H PRN PO 08/22/17 18:30 (Milk Of Magnesia Liq) 30 ml DAILY PRN PO 08/22/17 18:30 (Mag-Al Plus Susp Liq) 30 ml Q6H PRN PO 08/22/17 18:30 (Habitrol 21 Mg Patch.24 Hr) 1 patch DAILY T-DERMAL 08/23/17 09:00 08/23/17 09:58 Miscellaneous Information 1 HS T-DERMAL 08/22/17 21:00 (Remeron) 15 mg HS PO 08/23/17 21:00 Family History Patient states both parents are healthy and denies any significant family medical history. Social History Patient reports tobacco use 1 pack per day. He denies any alcohol use. Patient denies any illicit drug use however his admission drug screen was positive for cocaine and cannabis. Physical Exam Vital Signs Vital Signs Date Time Temp Pulse Resp B/P (MAP) Pulse Ox O2 Delivery O2 Flow Rate FiO2 08/23/17 06:16 97.1 67 119/74 (89) 99 08/22/17 18:15 98.4 62 110/65 (80) 08/22/17 17:49 08/22/17 17:48 60 18 108/56 (73) 100 Room Air Physical Exam GENERAL: This is a well-nourished, well-developed patient, in no apparent distress. Awake and alert. Appears comfortable. SKIN: No rashes, ecchymoses or lesions. Cool and dry. HEAD: Atraumatic. Normocephalic. No temporal or scalp tenderness. EYES: Pupils equal round and reactive. Extraocular motions intact. No scleral icterus. No injection or drainage. ENT: Nose without bleeding, purulent drainage. Throat without erythema, tonsillar hypertrophy or exudate. Uvula midline. Airway patent. NECK: Trachea midline. No lymphadenopathy. Supple, nontender, no meningeal signs. CARDIOVASCULAR: Regular rate and rhythm without murmurs, gallops, or rubs. RESPIRATORY: Clear to auscultation. Breath sounds equal bilaterally. No wheezes , rales, or rhonchi. GASTROINTESTINAL: Abdomen soft, non-tender, nondistended. No hepato-splenomegaly , or palpable masses. No guarding. MUSCULOSKELETAL: Extremities without clubbing, cyanosis, or edema. No joint tenderness, effusion, or edema noted. No calf tenderness. NEUROLOGICAL: Awake and alert. Able to move all extremities. No focal neurologic findings. Normal speech. Laboratory Laboratory Tests Test 08/23/17 06:19 Blood Urea Nitrogen 17 Creatinine 1.25 Random Glucose 74 Calcium Level 8.5 Sodium Level 143 Potassium Level 3.8 Chloride Level 106 Carbon Dioxide Level 31.4 Anion Gap 6 Estimat Glomerular Filtration Rate 67 Hemoglobin A1c 4.9 Triglycerides Level 63 Cholesterol Level 149 LDL Cholesterol 96 HDL Cholesterol 40.3 Cholesterol/HDL Ratio 3.69 Result Diagram: 08/20/17 1445 08/23/17 0619 Assessment and Plan Assessment and Plan 31-year-old male with past medical history significant for seizure disorder starting at the age of 7, depression and history of hypoglycemia per patient report who was brought in to [facility] ED by the police voluntarily for suicidal ideation and has since been admitted to the psychiatric unit. Hospitalist services have been consulted for medical management specifically for seizure management. Depression Suicidal ideation - Management per psychiatric team Seizure disorder - Patient states that despite medication compliance that he has continued to have recurrent seizure activity - Discussed with patient at length changing his medication from Tegretol to Keppra 500mg BID - Patient understands that he will need to be seen by neurologist as an outpatient for follow-up Hypoglycemia, per patient report - Patient states that low blood sugars trigger seizure activity - Accu-Cheks 3 times a day before meals - Discussed with patient increasing his oral intake to include more small meals throughout the day and attempt not to skip any meals - Will obtain AM cortisol at 8am Tobaccoism - Discussed smoking cessation DVT prophylaxis - Patient is ambulatory Thank you very kindly for this consultation. Will continue to follow this patient along with you. Discussed Condition With Patient Madina Perez Aug 23, 2017 13:39 Sudha Bradshaw DO Aug 23, 2017 20:19
[2017-08-23] MEDS ORDERED: DEXTROSE 50% IN WATER 50 ML VIAL(D50) IV PUSH PRN (16:30)
[2017-08-23] MEDS ORDERED: GLUCAGON 1 MG/ML VIAL IM PRN (16:30)
[2017-08-23 17:12] VITALS: BP 119/80; PULSE 71; RESP 18; TEMP 98.4; O2SAT 99
[2017-08-23] MEDS ORDERED: hydrOXYzine HCL 50 MG TAB PO PRN (17:15)
[2017-08-23] MEDS: REMOVE OLD NICOTINE PATCH T-DERMAL SCH (21:00)
[2017-08-23] MEDS: levETIRAcetam 500 MG TAB PO SCH (21:43)
[2017-08-23] MEDS: MIRTAZAPINE 15 MG TAB PO SCH (21:43)
[2017-08-24 06:21] VITALS: BP 91/52; PULSE 57; RESP 18; TEMP 97.4; O2SAT 98
[2017-08-24] MEDS: NICOTINE 21 MG/24 HR PATCH T-DERMAL SCH (09:21)
[2017-08-24] MEDS: levETIRAcetam 500 MG TAB PO SCH ×2 (09:21→20:43)
--- NOTE | 2017-08-24 09:42 | HHI.PYPN ---
Subjective Remarks Patient seen and examined with counselor. Chart reviewed. Case discussed with nursing staff. No behavioral issues overnight. On my examination today, the patient says that his mood is improving. He denies any suicidal or homicidal ideation. Denies significant anxiety. Denies audiovisual hallucinations. Denies side effects from medications besides some mild grogginess. No physical complaints. Review of Systems Except as stated in HPI: all other systems reviewed are Neg Objective Alert: Yes [place]: Person, Place, Date, Situation Mood: Other (mood improving) Affect: Appropriate Memory Intact: Comment (intact on clinical exam) Hallucinations: Other (denies AVH) Delusions: No Delusion Type: Other (no delusions) Suicidal: Ideation (denies SI) Homicidal: Ideation (denies HI) Insight/Judgment Fair Remarks No motor abnormality noted. No ictal activity. Thought process linear. Grooming and hygiene fair. Labs Labs reviewed. Cortisol level ordered by the hospitalist pending. Vitals/IOs Vital Signs Date Time Temp Pulse Resp B/P (MAP) Pulse Ox O2 Delivery O2 Flow Rate FiO2 08/24/17 06:21 97.4 57 18 91/52 (65) 98 08/22/17 17:48 Room Air Assessment & Plan Problem List: (1) Adjustment disorder ICD Codes: F43.20 - Adjustment disorder, unspecified Assessment & Plan Continue Remeron as ordered. I note that the hospitalist has switched the patient from Tegretol to Keppra, and I discuss with patient that this agent can sometimes cause dysphoric reactions, and he should remain vigilant for this. Continue to monitor on the inpatient unit. Continue other medications and care as ordered. Justification for Cont. Inpt. Monitoring for impairments in safety, none noted. Discharge Planning Anticipate discharge tomorrow, . Request HC Surrog/Guard Advoc?: No Problem Qualifiers (1) Adjustment disorder: Qualified Codes: F43.21 - Adjustment disorder with depressed mood Kolby Leong MD Aug 24, 2017 09:42
--- NOTE | 2017-08-24 16:40 | HHI.PR ---
Subjective Remarks pleasant and cooperative at present denies any suicidal ideations good po Objective Vitals Vital Signs Date Time Temp Pulse Resp B/P (MAP) Pulse Ox O2 Delivery O2 Flow Rate FiO2 08/24/17 06:21 97.4 57 18 91/52 (65) 98 08/23/17 17:12 98.4 71 18 119/80 (93) 99 Result Diagram: 08/20/17 1445 08/23/17 0619 Objective Remarks awake and alert, oriented x 3 anicteric lungs clear regular rhythm abdomen soft, nontender extremities no edema up and ambulating steadily A/P Assessment and Plan 31-year-old male with past medical history significant for seizure disorder starting at the age of 7, depression and history of hypoglycemia per patient report who was brought in to [facility] ED by the police voluntarily for suicidal ideation and has since been admitted to the psychiatric unit. Hospitalist services have been consulted for medical management specifically for seizure management. Depression Suicidal ideation - Management per psychiatric team Seizure disorder- patient states also related to low blood sugars - Discussed with patient at length changing his medication from Tegretol to Keppra 500mg BID by Dr. burkett advise patient to eat on time- since low glucose decreaseds seziure threshold he states he was already setting up with a neurologist as OP Hypoglycemia, per patient report - Patient states that low blood sugars trigger seizure activity - Accu-Cheks 3 times a day before meals - Discussed with patient increasing his oral intake to include more small meals throughout the day and attempt not to skip any meals Tobaccoism - Discussed smoking cessation DVT prophylaxis - Patient is ambulatory Cocaine +/Marijuana + d/w patient at length Elsy Schrader MD Aug 24, 2017 16:40
[2017-08-24 17:48] VITALS: BP 120/64; PULSE 72; RESP 17; TEMP 98; O2SAT 98
[2017-08-24] MEDS: REMOVE OLD NICOTINE PATCH T-DERMAL SCH (20:43)
[2017-08-24] MEDS: MIRTAZAPINE 15 MG TAB PO SCH (20:43)
[2017-08-25 06:09] VITALS: BP 105/54; PULSE 51; RESP 18; TEMP 97.6; O2SAT 99
[2017-08-25] MEDS: NICOTINE 21 MG/24 HR PATCH T-DERMAL SCH (08:30)
[2017-08-25] MEDS: levETIRAcetam 500 MG TAB PO SCH (08:30)
[2017-08-25] MEDS ORDERED: MIRTA15 PO (12:02)
[2017-08-25] MEDS ORDERED: LEVE500 PO (12:02)
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
== END 2017-08-25 14:00 | disposition home or self-care (01) | DRG 881 ==
LOC: NEPD 14:07 → NEDA 08-22 16:55 → H270 08-22 17:46
PROVIDERS: ADMIT Psychiatry & Neurology Psychiatry; ATTEND Psychiatry & Neurology Psychiatry
DX: F43.21 Adjustment disorder with depressed mood (principal); G40.909 Epilepsy, unspecified, not intractable, without status epilepticus; R45.851 Suicidal ideations; F12.10 Cannabis abuse, uncomplicated; F17.200 Nicotine dependence, unspecified, uncomplicated; Z91.5 Personal history of self-harm; Z81.1 Family history of alcohol abuse and dependence
CPT/HCPCS: 80048; 80053; 80061; 80156; 80307; 82533; 82948; 83036; 85025; 93005; 96374; J2060

== ENCOUNTER 2017-12-15 12:51 | Emergency (ER) | payer OTHER, MEDICAID ==
[~2017-12-15] VITALS: Ht 180.3 cm; Wt 70.5 kg
[~2017-12-15 12:51] MED LIST changes: +LEVE500 PO; -TEGR200T PO
[2017-12-15 12:53] VITALS: BP 127/77; PULSE 78; RESP 16; TEMP 97.9; O2SAT 100
[2017-12-15 13:54] LABS: AUTOMATED NEUTROPHIL # 3.5 TH/MM3 (1.8-7.7); BASOPHIL % 0.7 % (0.0-2.0); EOSINOPHIL # 0.2 TH/MM3 (0-0.4); EOSINOPHIL % 3.1 % (0.0-4.0); HEMATOCRIT 46.5 % (39.0-51.0); HEMOGLOBIN 15.8 GM/DL (13.0-17.0); LYMPH % 30.4 % (9.0-44.0); LYMPHOCYTE # 1.8 TH/MM3 (1.0-4.8); MEAN CELL VOLUME 97.8 FL (80.0-100.0); MEAN CORPUSCULAR HEMOGLOBIN 33.3 PG (27.0-34.0); MONOCYTE # 0.5 TH/MM3 (0-0.9); NEUT % 56.8 % (16.0-70.0); PLATELET COUNT 211 TH/MM3 (150-450); RED BLOOD COUNT 4.76 MIL/MM3 (4.50-5.90); RED CELL DISTRIBUTION WIDTH 13.1 % (11.6-17.2); WHITE BLOOD COUNT 6.1 TH/MM3 (4.0-11.0)
[2017-12-15 14:18] LABS: ALBUMIN 3.8 GM/DL (3.4-5.0); ALT (GPT) 86 U/L (12-78); AST (GOT) 24 U/L (15-37); BICARBONATE 29.1 MEQ/L (21.0-32.0); BLOOD UREA NITROGEN 18 MG/DL (7-18); CHLORIDE 105 MEQ/L (98-107); GLOMERULAR FILTRATION RATE 77 ML/MIN (>89); GLUCOSE,RANDOM 114 MG/DL (74-106); MAGNESIUM 2.4 MG/DL (1.5-2.5); SODIUM (NA) 141 MEQ/L (136-145)
[2017-12-15 14:20] LABS: ALKALINE PHOSPHATASE 120 U/L (45-117); TOTAL BILIRUBIN ADULT 0.9 MG/DL (0.2-1.0); TOTAL PROTEIN 7.6 GM/DL (6.4-8.2)
--- NOTE | 2017-12-15 14:43 | PD ---
HPI Chief Complaint: Dizziness Time Seen by Provider: 14:41 Travel History International Travel<30 days: No Contact w/Intl Traveler<30days: No Traveled to known affect area: No History of Present Illness HPI Patient 32-year-old male with a history of seizure disorder presents emergency department for evaluation of being out of his Keppra for the past 2 days and having 2 seizures this morning. Denies any injuries, denies any headache neck pain extremity pain tongue biting loss of urine. He does have a documented history of alcohol abuse in the past. He is concerned that he might have another seizure. Initially telling the triage staff that he was unsure of his seizure medication he states it was Keppra. States she's and 500 mg twice a day. States symptoms are resolved, context as above, associated signs symptoms as above, mild in severity. PFSH Past Medical History Depression: Yes Cancer: No Cardiovascular Problems: No Diminished Hearing: No Endocrine: No Gastrointestinal Disorders: No Genitourinary: No Headaches: No Immune Disorder: No Implanted Vascular Access Dvce: No Musculoskeletal: No Neurologic: Yes Psychiatric: Yes (depression and adjustment disorder ) Reproductive: No Respiratory: No Immunizations Current: Yes Seizures: Yes Past Surgical History Other Surgery: No Social History Alcohol Use: No (PT REFUSING TO ANSWER QUESTIONS) Tobacco Use: Yes (1/2 PPD) Substance Use: Yes (marijuana, Cocaine & amphetemine ) Allergies-Medications (Allergen,Severity, Reaction): Coded Allergies: No Known Allergies (Verified Adverse Reaction, Unknown, 12/15/17) Reported Meds & Prescriptions Reported Meds & Active Scripts Active Keppra (Levetiracetam) 500 Mg Tab 500 Mg PO BID Keppra (Levetiracetam) 500 Mg Tab 500 Mg PO BID Review of Systems Except as stated in HPI: all other systems reviewed are Neg Physical Exam Narrative GENERAL: Well-developed well-nourished no obvious distress SKIN: Focused skin assessment warm/dry. HEAD: Atraumatic. Normocephalic. EYES: Pupils equal and round. No scleral icterus. No injection or drainage. ENT: No nasal bleeding or discharge. Mucous membranes pink and moist. NECK: Trachea midline. No JVD. CARDIOVASCULAR: Regular rate and rhythm. No murmur appreciated. RESPIRATORY: No accessory muscle use. Clear to auscultation. Breath sounds equal bilaterally. GASTROINTESTINAL: Abdomen soft, non-tender, nondistended. Hepatic and splenic margins not palpable. MUSCULOSKELETAL: No obvious deformities. No clubbing. No cyanosis. No edema. NEUROLOGICAL: Awake and alert. Cranial nerves II through XII are grossly intact and nonfocal, 5 out of 5 strength in all 4 tremors, cerebellar testing negative, ambulates with an even narrow based gait.. PSYCHIATRIC: Appropriate mood and affect; insight and judgment normal. Data Data Last Documented VS Vital Signs Date Time Temp Pulse Resp B/P (MAP) Pulse Ox O2 Delivery O2 Flow Rate FiO2 12/15/17 16:04 12/15/17 14:51 91 18 98 Room Air 12/15/17 12:53 97.9 Orders Orders Complete Blood Count With Diff (12/15/17 13:02) Comprehensive Metabolic Panel (12/15/17 13:02) Magnesium (Mg) (12/15/17 13:02) Levetiracetam (Keppra) (12/15/17 15:15) Ed Discharge Order (12/15/17 15:07) Levetiracetam (Keppra) (12/15/17 15:15) Labs Laboratory Tests Test 12/15/17 13:24 White Blood Count 6.1 TH/MM3 Red Blood Count 4.76 MIL/MM3 Hemoglobin 15.8 GM/DL Hematocrit 46.5 % Mean Corpuscular Volume 97.8 FL Mean Corpuscular Hemoglobin 33.3 PG Mean Corpuscular Hemoglobin Concent 34.0 % Red Cell Distribution Width 13.1 % Platelet Count 211 TH/MM3 Mean Platelet Volume 8.0 FL Neutrophils (%) (Auto) 56.8 % Lymphocytes (%) (Auto) 30.4 % Monocytes (%) (Auto) 9.0 % Eosinophils (%) (Auto) 3.1 % Basophils (%) (Auto) 0.7 % Neutrophils # (Auto) 3.5 TH/MM3 Lymphocytes # (Auto) 1.8 TH/MM3 Monocytes # (Auto) 0.5 TH/MM3 Eosinophils # (Auto) 0.2 TH/MM3 Basophils # (Auto) 0.0 TH/MM3 CBC Comment DIFF FINAL Differential Comment Blood Urea Nitrogen 18 MG/DL Creatinine 1.10 MG/DL Random Glucose 114 MG/DL Total Protein 7.6 GM/DL Albumin 3.8 GM/DL Calcium Level 9.0 MG/DL Magnesium Level 2.4 MG/DL Alkaline Phosphatase 120 U/L Aspartate Amino Transf (AST/SGOT) 24 U/L Alanine Aminotransferase (ALT/SGPT) 86 U/L Total Bilirubin 0.9 MG/DL Sodium Level 141 MEQ/L Potassium Level 3.7 MEQ/L Chloride Level 105 MEQ/L Carbon Dioxide Level 29.1 MEQ/L Anion Gap 7 MEQ/L Estimat Glomerular Filtration Rate 77 ML/MIN MDM Medical Decision Making Medical Screen Exam Complete: Yes Emergency Medical Condition: Yes Differential Diagnosis Recurrent seizure, medication noncompliance, electrolyte abnormality, dehydration. Narrative Course Patient roomed emerged permit, appears well and in obvious distress, no seizure- like activity displayed in the emergency department, given 500 mg of Keppra, given a prescription, basic labs are reassuring. No indication further workup in the emergency department. He stable for discharge. Discussed follow-up with neurologist, [facility] for a checkup, stroke [facility] act and discussed return to ED criteria. Diagnosis Primary Impression: Recurrent seizures Additional Impression: Polysubstance abuse Referrals: Stoney Ashby MD [facility] Behavioral Med/Other Pt SpecificInfo: Prescription(s) given Scripts Levetiracetam (Keppra) 500 Mg Tab 500 MG PO BID for Control Seizures, #60 TAB 0 Refills Prov: Russell Frost MD 12/15/17 Disposition: 01 DISCHARGE HOME Condition: Stable Russell Frost MD Dec 15, 2017 14:43
[2017-12-15 14:51] VITALS: BP 124/74; PULSE 91; RESP 18; O2SAT 98
[2017-12-15] MEDS ORDERED: LEVE500 PO (15:07)
[2017-12-15] MEDS ORDERED: levETIRAcetam 500 MG TAB PO ONE ×2 (15:15)
== END 2017-12-15 16:09 | disposition home or self-care (01) ==
LOC: NEPD 12:51
DX: G40.909 Epilepsy, unspecified, not intractable, without status epilepticus (principal); F17.200 Nicotine dependence, unspecified, uncomplicated; F19.10 Other psychoactive substance abuse, uncomplicated; Z79.899 Other long term (current) drug therapy
CPT/HCPCS: 80053; 83735; 85025; 99283